=== PATIENT | female | born 1975 | race African-American/Black ===

== ENCOUNTER 2018-11-02 12:14 | Observation (INO) ==
[2018-11-02 17:46] LABS: BASOPHILS # (AUTO) 0.1 X10^3/uL (0.0-0.1); BASOPHILS % (AUTO) 0.8 % (0.2-1.0); EOSINOPHILS # (AUTO) 0.1 x10^3/uL (0.0-0.2); EOSINOPHILS % (AUTO) 1.2 % (0.9-2.9); HEMATOCRIT 39.8 % (36.0-47.0); HEMOGLOBIN 13.2 g/dL (12.0-16.0); LYMPHOCYTES # (AUTO) 3.8 X10^3/uL (1.3-2.9); LYMPHOCYTES % (AUTO) 40.8 % (21.0-51.0); MEAN CORPUSCULAR HEMOGLOBIN 28.2 pg (27.0-34.0); MEAN CORPUSCULAR HGB CONC 33.2 g/dL (33.0-35.0); MEAN PLATELET VOLUME 7.1 fL (7.4-11.0); MONOCYTES # (AUTO) 0.8 x10^3/uL (0.3-0.8); NEUTROPHILS # (AUTO) 4.4 x10^3/uL (2.2-4.8); NEUTROPHILS % (AUTO) 48.2 % (42.0-75.0); PLATELET COUNT 283 X10^3/uL (150.0-450.0); RED BLOOD COUNT 4.68 X10^6/uL (3.5-5.4); RED CELL DISTRIBUTION WIDTH 13.7 % (11.6-16.5); WHITE BLOOD COUNT 9.2 X10^3/uL (3.6-10.0)
[2018-11-02 17:56] LABS: ALANINE AMINOTRANSFERASE 53 Units/L (12-78); ALBUMIN 3.9 g/dL (3.4-5.0); ALKALINE PHOSPHATASE 97 Units/L (46-116); ASPARTATE AMINO TRANSFERASE 30 Units/L (15-37); BLOOD UREA NITROGEN 13 mg/dL (7-18); CALCIUM 9.5 mg/dL (8.5-10.1); CARBON DIOXIDE 23.1 mmol/L (21-32); CHLORIDE 104 mmol/L (98-107); COR NA(FOR HYPERGLY) 141 mmol/L (136-145); CREATININE 0.96 mg/dL (0.55-1.02); SODIUM 140 mmol/L (136-145); TOTAL PROTEIN 8.1 g/dL (6.4-8.2); eGFR NON BLACK RACES > 60 (>60)
[2018-11-02] MEDS ORDERED: NS 1000 ML 1,000 ML ONE (17:56)
[2018-11-02 18:00] VITALS: BMI 31.0
--- NOTE | 2018-11-02 18:04 | RAD ---
Exam: Chest two views History: 43-year-old female with cough and shortness of breath. Comparison: None Findings: Heart size and pulmonary vasculature are normal. Lungs are clear with no infiltrate or significant effusion on either side. Bony thorax is unremarkable as well. Impression: No acute cardiopulmonary abnormality is seen on this exam Reported By:
[2018-11-02 20:16] LABS: BILIRUBIN,URINE NEGATIVE (NEGATIVE); BLOOD/HEMOGLOBIN,URINE 1+ (NEGATIVE); GLUCOSE, URINE NEGATIVE (NEGATIVE); KETONES,URINE NEGATIVE (NEGATIVE); LEUKOCYTE ESTERASE ,URINE NEGATIVE (NEGATIVE); NITRITES,URINE NEGATIVE (NEGATIVE); PROTEIN,URINE NEGATIVE (NEGATIVE); UROBILINOGEN,URINE NORMAL (NORMAL)
[2018-11-02 20:23] LABS: COLOR,URINE STRAW (YELLOW)
[2018-11-02 20:24] LABS: APPEARANCE,URINE CLEAR (CLEAR); RBC,URINE NONE SEEN /HPF (NONE SEEN); SQUAMOUS EPITHELIAL CELL,UR RARE /HPF (NEGATIVE)
[2018-11-02 20:25] LABS: BACTERIA,URINE NEGATIVE /HPF (NEGATIVE)
[2018-11-02] MEDS ORDERED: STERILE WATER IRRIGATION ONE (20:51)
[2018-11-02] MEDS: NS 1000 ML 1,000 ML IV SCH (21:00)
[2018-11-03] MEDS: NS 1000 ML 1,000 ML IV SCH (04:46)
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
[2018-11-03] MEDS ORDERED: ULTRAM PO PRN (08:09)
[2018-11-03] MEDS ORDERED: HumuLIN R SUBCUT PRN (08:39)
[2018-11-03] MEDS ORDERED: CARIPRAZINE 1.5 MG PO SCH (09:00)
[2018-11-03] MEDS ORDERED: ALLEGRA PO SCH (09:00)
[2018-11-03] MEDS ORDERED: NEURONTIN CAP 300 MG PO SCH (09:00)
[2018-11-03] MEDS ORDERED: LEVEMIR SC SCH (09:00)
[2018-11-03] MEDS ORDERED: NEURONTIN CAP 100 MG PO SCH (09:00)
[2018-11-03] MEDS ORDERED: LIORESAL PO SCH (09:00)
[2018-11-03 10:00] VITALS: BP 129/67
[2018-11-03 10:37] LABS: BASOPHILS # (AUTO) 0.1 X10^3/uL (0.0-0.1); BASOPHILS % (AUTO) 0.9 % (0.2-1.0); EOSINOPHILS # (AUTO) 0.1 x10^3/uL (0.0-0.2); EOSINOPHILS % (AUTO) 1.2 % (0.9-2.9); HEMATOCRIT 40.1 % (36.0-47.0); HEMOGLOBIN 13.3 g/dL (12.0-16.0); LYMPHOCYTES # (AUTO) 2.7 X10^3/uL (1.3-2.9); LYMPHOCYTES % (AUTO) 32.3 % (21.0-51.0); MEAN CORPUSCULAR HEMOGLOBIN 28.5 pg (27.0-34.0); MEAN CORPUSCULAR HGB CONC 33.2 g/dL (33.0-35.0); MEAN CORPUSCULAR VOLUME 85.9 fL (80.0-100.0); MEAN PLATELET VOLUME 7.6 fL (7.4-11.0); MONOCYTES # (AUTO) 0.7 x10^3/uL (0.3-0.8); MONOCYTES % (AUTO) 8.3 % (0.0-13.0); NEUTROPHILS # (AUTO) 4.7 x10^3/uL (2.2-4.8); NEUTROPHILS % (AUTO) 57.3 % (42.0-75.0); PLATELET COUNT 277 X10^3/uL (150.0-450.0); RED BLOOD COUNT 4.67 X10^6/uL (3.5-5.4); RED CELL DISTRIBUTION WIDTH 13.8 % (11.6-16.5); WHITE BLOOD COUNT 8.3 X10^3/uL (3.6-10.0)
[2018-11-03 10:44] LABS: ALANINE AMINOTRANSFERASE 49 Units/L (12-78); ALBUMIN 3.7 g/dL (3.4-5.0); ALKALINE PHOSPHATASE 96 Units/L (46-116); ASPARTATE AMINO TRANSFERASE 36 Units/L (15-37); BLOOD UREA NITROGEN 13 mg/dL (7-18); CALCIUM 9.4 mg/dL (8.5-10.1); CARBON DIOXIDE 26.3 mmol/L (21-32); CHLORIDE 104 mmol/L (98-107); COR NA(FOR HYPERGLY) 141 mmol/L (136-145); CREATININE 0.88 mg/dL (0.55-1.02); SODIUM 140 mmol/L (136-145); TOTAL PROTEIN 7.8 g/dL (6.4-8.2); eGFR NON BLACK RACES > 60 (>60)
[2018-11-03 10:46] LABS: SALICYLATE < 2.8 mg/dL (2.8-20)
[2018-11-03] MEDS ORDERED: HumaLOG SC SCH (14:00)
[2018-11-03] MEDS ORDERED: SNACK - Diabetic Appropriate PO SCH ×2 (20:00)
[2018-11-03] MEDS ORDERED: PRAZOSIN 1 MG PO SCH (21:00)
[2018-11-03] MEDS ORDERED: ZOLOFT PO SCH (21:00)
[2018-11-03] MEDS ORDERED: ZESTRIL TAB 20 MG PO SCH (21:00)
[2018-11-08] MEDS ORDERED: VITAMIN D (1.25MG) PO SCH (09:00)
== END 2018-11-03 14:05 | disposition home or self-care (01) ==
LOC: MED/SURG
PROVIDERS: ADMIT Internal Medicine; ATTEND Internal Medicine
DX: Z79.4 Long term (current) use of insulin; F32.89 Other specified depressive episodes; R45.851 Suicidal ideations; E11.65 Type 2 diabetes mellitus with hyperglycemia; I10 Essential (primary) hypertension; F41.8 Other specified anxiety disorders; F25.8 Other schizoaffective disorders; M54.5 Low back pain
CPT/HCPCS: 36415; 71020; 71046; 80053; 80307; 81001; 82009; 85025; A4217; A4222; G0378; G6038; G6039; J7030